=== PATIENT | male | born 1935 | race Caucasian/White ===

== ENCOUNTER → 2017-01-11 | Outpatient (CLI) | payer MEDICARE, OTHER ==
[~2017-01-11] MED LIST: BUSPIRONE HCL5 MG PO; DONEPEZIL HCL5 MG PO; ENALAPRIL MALEA10 MG PO; IRON325 M1 PO; LEVOTHYROXINE175 MCG PO; METOPROLOL SUCC50 MG PO; OMEPRAZOLE20 MG PO; THERAGRAN M TAB1 EA PO
== END ==
LOC: CT 12:17
DX: D49.519 Neoplasm of unspecified behavior of unspecified kidney (principal); N28.89 Other specified disorders of kidney and ureter; N28.9 Disorder of kidney and ureter, unspecified; E86.0 Dehydration
CPT/HCPCS: 74170; 96360; J7030; J7050; Q9965